=== PATIENT | male | born 1980 | race Caucasian/White ===

== ENCOUNTER → 2017-04-27 | Outpatient (CLI) | payer BC ==
--- NOTE | 2017-04-28 12:42 | PCVCIMAG ---
APPROVED REPORT Exam: Stress Echocardiogram Indication: Chest pain, lightheadedness, Fam Hx CAD, HLP Patient Location: Echo lab Stress Nurse: Mira Flores RN Status: routine Ht: 6 ft 4 in HR: 63 bpm BP: 124/82 mmHg Rhythm: NSR Procedure The patient underwent an Exercise Stress Test using the Graham Protocol. Blood pressure, heart rate, and EKG were monitored. An Echocardiogram was performed by insulation technician in four stages in quad fashion. At peak stress, four selected images were obtained and placed side by side with resting images for comparison. Stress Test Details Stress Test: Exercise stress testing was performed using a Graham protocol. HR Resting HR: 63 bpmMax Heart Rate (APMHR): 183 bpm Max HR Achieved: 157 bpmTarget HR (85% APMHR): 155 bpm % of APMHR: 85 Recovery HR: 80 bpm BP Resting BP: 124/82 mmHg Max BP: 156/80 mmHg Recovery BP: 110/70 mmHg ECG Resting ECG: Sinus Rhythm Stress ECG: Sinus Rhythm ST Change: non-specific ST changes Arrhythmia: None Recovery ECG: Sinus Rhythm Recovery Arrhythmia: None Clinical Reason for Termination: Maximal effort Stress Symptoms: Dyspnea Exercise duration: 13 min 32 sec Highest Stage Achieved: Stage 5: 5.0 mph at 18% grade. Exercise capacity: 17.2 METs Overall Exercise Capacity for Age: Good Scale: Active Angina Score: None Stress ECG Conclusion 1. SUBJECTIVELY NEGATIVE FOR ISCHEMIA 2. ELECTROCARDIOGRAPHICALLY NEGATIVE FOR ISCHEMIA 3. EXCELLENT FUNCTIONAL CAPACITY Pre-Stress Echo The resting Echocardiogram showed normal left ventricular contractility with an estimated Ejection Fraction of about >55%. Normal wall motion in all segments on baseline images. Post-Stress Echo The stress Echocardiogram showed normal left ventricular contractility with an estimated Ejection Fraction of about 65%. Normal augmentation of wall motion in all segments on post stress images. Clinical No clinical or ECG evidence for ischemia. Conclusion Clinical Response: Non-ischemic Stress ECG Response: Non-ischemic Stress Echo Images: Non-ischemic The left ventricle is normal in size and wall thickness in both the rest and stress images. 1. LOW RISK STUDY Other Information Study Quality: Adequate <Conclusion> The left ventricle is normal in size and wall thickness in both the rest and stress images. 1. LOW RISK STUDY
== END | disposition home or self-care (01) ==
LOC: PCVCIMAG 16:57
PROVIDERS: ATTEND Internal Medicine
DX: R42 Dizziness and giddiness (principal); R07.9 Chest pain, unspecified; Z82.49 Family history of ischemic heart disease and other diseases of the circulatory system
CPT/HCPCS: 93325; 93351